=== PATIENT | female | born 1965 | race Caucasian/White ===

== ENCOUNTER 2019-05-21 18:37 | Inpatient (IN) | payer OTHER ==
[~2019-05-21] VITALS: Ht 167.6 cm; Wt 81.6 kg
[2019-05-21 18:51] VITALS: BP_SYST 134
--- NOTE | 2019-05-21 18:53 | NUR ---
Patient to ER bed 02 to gown for evaluation. Side rails up.
--- NOTE | 2019-05-21 19:00 | NUR ---
# 22 gauge angiocath placed to LT Hand. Use of asceptic technique. Opsite placed over site. Blood return noted. Blood for lab drawn from site. Flushed with 10 cc of normal saline. No evidence of infiltration noted. Patient tolerated well.
--- NOTE | 2019-05-21 19:05 | NUR ---
ER Dr. Pedro at bedside examining patient.
--- NOTE | 2019-05-21 19:10 | NUR ---
Pt C/O abdominal pain x 1.5 months. 4 days ago patient states pain started to radiate to the groin and new onset of nausea. Was seen at [facility] ER and was diagnosed with kidney stones to large to pass. Pt was medicated with Morphine and antibiotics, and discharged with Gervais for pain control. Pt states pain is unbearable and has not been relieved with Gervais. Denies any other symptoms at this time. Will continue to monitor.
[2019-05-21] MEDS ORDERED: ONDANSETRON HCL 4 MG/2 ML VIAL IVP ONE ×2 (19:15→20:45)
[2019-05-21] MEDS ORDERED: KETOROLAC TROMETHAMINE 30 MG VIAL IVP ONE (19:15)
[2019-05-21 19:19] LABS: BILIRUBIN,URINE NEGATIVE (NEGATIVE); BLOOD, URINE 3+ (NEGATIVE); CLARITY/URINE SL HAZY (CLEAR); COLOR,URINE YELLOW (YELLOW); GLUCOSE,URINE NEGATIVE (NEGATIVE); KETONES,URINE NEGATIVE (NEGATIVE); LEUKOCYTE ESTERASE ,URINE NEGATIVE (NEGATIVE); NITRITE, URINE POSITIVE (NEGATIVE); PROTEIN URINE TRACE (NEGATIVE)
[2019-05-21 19:30] LABS: BASOPHILS # (AUTO) 0.1 K/uL (0.0-0.2); BASOPHILS % (AUTO) 0.9 % (0.0-2.0); EOSINOPHILS # (AUTO) 0.3 K/uL (0.0-0.4); EOSINOPHILS % (AUTO) 4.8 % (0.0-4.0); HEMATOCRIT 38.2 % (36-48); HEMOGLOBIN 12.2 g/dL (12.0-16.0); LYMPHOCYTES # (AUTO) 1.9 K/uL (1.0-5.5); LYMPHOCYTES % (AUTO) 30.5 % (20.5-51.5); MEAN CORPUSCULAR HEMOGLOBIN 28 pg (27-31); MEAN CORPUSCULAR HGB CONC 32 % (32-36); MEAN CORPUSCULAR VOLUME 88 fL (79.0-98.0); MONOCYTES # (AUTO) 0.4 K/uL (0.0-1.0); MONOCYTES % (AUTO) 6.9 % (1.7-9.3); NEUTROPHILS # (AUTO) 3.5 K/uL (1.8-7.7); NEUTROPHILS % (AUTO) 56.9 % (40.0-70.0); PLATELET COUNT (AUTO) 213 K/uL (130-430); RED BLOOD CELL COUNT(AUTO) 4.36 MIL/uL (4.2-6.2); RED CELL DISTRIBUTION WIDTH 15.4 % (9.0-15.0); WHITE BLOOD COUNT (AUTO) 6.2 K/uL (4.8-10.8)
[2019-05-21 19:34] LABS: BACTERIA,URINE MODERATE /HPF (None Seen); MUCUS,URINE None Seen /LPF (None Seen); RBC,URINE 50-80 /HPF (0-3); WBC,URINE 0-3 /HPF (0-3)
[2019-05-21 19:42] LABS: CALCIUM 9.3 mg/dL (8.4-11.0); CREATININE 0.8 mg/dL (0.55-1.30)
[2019-05-21 19:46] LABS: ALBUMIN 3.5 g/dL (3.4-4.8); TOTAL BILIRUBIN 0.2 mg/dL (0.0-1.0)
--- NOTE | 2019-05-21 20:05 | NUR ---
Pt states pain is now a 9/10 after the Toradol administration. Pt requesting for addition medication for pain management.
[2019-05-21] MEDS ORDERED: MORPHINE 4 MG/ML INJ. SYRINGE IVP ONE (20:45)
[2019-05-21] MEDS ORDERED: NACL 0.9% 1,000 ML IV ONE (20:45)
--- NOTE | 2019-05-21 21:07 | NUR ---
medicated per md orders. patient tolerated well.
--- NOTE | 2019-05-21 21:13 | NUR ---
Patient transported to radiology via gurney, accompanied by rad staff.
--- NOTE | 2019-05-21 21:20 | NUR ---
Pt returned in stable condition
[2019-05-21] MEDS ORDERED: FER300L PO (22:31)
[2019-05-21] MEDS ORDERED: TOPI200T PO (22:31)
[2019-05-21] MEDS ORDERED: SUCR1TAB78 PO (22:31)
[2019-05-21] MEDS ORDERED: PANT20TA2 PO (22:31)
[2019-05-21] MEDS ORDERED: HYDR-4274 PO (22:31)
[2019-05-21] MEDS ORDERED: CYM30 PO (22:31)
--- NOTE | 2019-05-21 22:32 | NUR ---
Medication reconciliation completed with information gathered from patient
--- NOTE | 2019-05-21 22:56 | NUR ---
Patient will be admitted to care of Dr. Franco. Admitted to med surg unit. Will go to room 106B. Belongings list completed. Summary report printed. Report will be given at bedside.
--- NOTE | 2019-05-21 23:15 | NUR ---
pt.admit.via er-dept.pt.c/o pain;lt.flank;llq abdomen radiates to lower back.pt.had received the administration morphine;in the er-dept.pt.stated that the medication potency has waned.pt.presents pain,nausea.to page ;chi to apprise of the pt.'s status.
--- NOTE | 2019-05-21 23:24 | NUR ---
Report has been called to Jerald AYALA and will be transported to [facility] by ER staff. Pt stable, will continue to monitor
--- NOTE | 2019-05-21 23:27 | NUR ---
Admission Note Received patient from ER with diagnosis of abdominal pain. Initial Plan of Care discussed-patient verbalized understanding. Oriented to room, call light, pain management and safety.
[2019-05-21 23:31] VITALS: BP_SYST 121
[2019-05-22] VITALS: BP_SYST 121
--- NOTE | 2019-05-22 00:05 | NUR ---
PAGED PAGING JONATHON ALVAREZ FOR ORDERS, SPOKE WITH PAU
[2019-05-22] MEDS: MORPHINE 4 MG/ML INJ. SYRINGE IVP PRN ×5 (00:56→20:13)
[2019-05-22] MEDS: ONDANSETRON HCL 4 MG/2 ML VIAL IVP PRN ×3 (00:59→20:13)
[2019-05-22] MEDS: traZODone HCL 50 MG TABLET (DESYREL) PO PRN ×2 (01:00→23:50)
--- NOTE | 2019-05-22 01:00 | NUR ---
i have administered:morphine;4mg ivp;2/t pt's pain level.to f/u re;pain medication efficacy pr pain mgx protocol. i have administered zofran;4mg ivp;nausea.i have administered;trazodone;100mg po.i have initiated the iv fluids: d5/45ns.@100ml/hr.
[2019-05-22] MEDS: D5/0.45 NS 1,000 ML IV SCH ×3 (01:02→20:08)
--- NOTE | 2019-05-22 02:00 | NUR ---
pt.assessed.pt.presents quiescent affect;kendall;m,somnolent.iv fluids infusing.general status stable.respiratory status stable. pt.capable to reposition self.call light/telephone w/in the reach of the pt.
--- NOTE | 2019-05-22 03:58 | NUR ---
pt.assessed.present quiescent affect;calm,somnolent.iv fluids infusing.general status stable.respiratory status stable. pt.capable to reposition self.call light/telephone w/in the reach of the pt..
--- NOTE | 2019-05-22 06:38 | NUR ---
pt.assessed.pt.presents affect;restless.prt.assessed for cleanliness.pt.changed.pt.repositioned.i have assessed the dsg;lt.deltoid.drainage; sanguinous;scant.i have assessed the g-tube;intact;patent;g-tube feed infusing.i have assessed the chavis catheter intact;patent;urine content present.i have assessed the iv access;intact;patent:iv fluids infusing. general status stable.respiratory status stable.call light/telephone placed w/in the reach of the pt.:rt.side;hand.
--- NOTE | 2019-05-22 07:26 | NUR ---
OPENING NOTE Patient resting in the bed. No acute distress. AAO x 4. denied of pain at this time. Skin warm and dry to touch. IV intact to left hand, no redness, no swelling, no drainage. On D5 1/2NS at 100ml/hr, infusing well. Discussed the safety issue, use call light when needs help, and plan of care, verbally understanding. Safety measure maintained. Bed locked in low position, side rails up. Refused bed alarm, risk and benefit explained, verbally understanding. Call light within reached. Will continue to monitor.
[2019-05-22 07:50] VITALS: BP_SYST 113
[2019-05-22] MEDS ORDERED: HYDROcodone/ACETAMIN 5-325 MG TAB (NORCO/ VICODIN) PO PRN (09:00)
[2019-05-22] MEDS ORDERED: LORazepam 2 MG/ML VIAL IVP PRN (09:00)
[2019-05-22] MEDS ORDERED: FERROUS SULFATE 300 MG/5 ML UDC PO SCH (09:00)
[2019-05-22] MEDS ORDERED: ACETAMINOPHEN 325 MG TABLET PO PRN (09:00)
[2019-05-22] MEDS ORDERED: RIZATRIPTAN BENZOATE 10 MG PO ONE (09:00)
--- NOTE | 2019-05-22 09:14 | NUR ---
CONSULT ID UTI BRIDGET LINO [phone] FACE SHEET FAXED TO [phone] S/W DEJUAN GASTELUM
--- NOTE | 2019-05-22 09:15 | NUR ---
CONSULTATION PAGED REASON FOR CONSULTATION:UTI WAS CONSULT CALLED?Y PERSON WHO WAS NOTIFIED:DEJUAN CONSULTING PHYSICIAN:BRIDGET WOOD DIRECTOR OUTCOMES SPECIALTY:ID DIRECTOR OUTCOMES PHONE NUMBER:[phone] ORDERING PHYSICIAN:JONATHON LAWSON
[2019-05-22] MEDS: DULoxetine HCL 30 MG CAPSULE.DR (CYMBALTA) PO SCH (09:29)
[2019-05-22] MEDS: cefTRIAXone 1 GM in D5W 50 ML IV SCH (09:29)
[2019-05-22] MEDS: SUCRALFATE 1 GM TABLET PO SCH ×2 (09:30→20:09)
[2019-05-22] MEDS ORDERED: FERROUS SULFATE 325 MG TABLET.DR PO ONE (09:30)
[2019-05-22] MEDS: TOPIRAMATE 100 MG TABLET(Topamax) PO SCH ×2 (09:30→20:09)
[2019-05-22] MEDS: PANTOPRAZOLE SODIUM 40 MG TAB PO SCH ×2 (09:30→20:10)
--- NOTE | 2019-05-22 10:07 | NUR ---
MORPHINE GIVEN Patient c/o left abdomen and back pain. Morphine 4mg IVP given as ordered. No acute distress. Safety measure maintained. Call light within reached. Bed locked in low position, side rails up. Continue to monitor.
[2019-05-22] MEDS: HYDROcodone/ACETAMIN 10-325 MG TAB PO PRN (11:32)
--- NOTE | 2019-05-22 11:32 | NUR ---
NORCO GIVEN Patient c/o left abdomen and flank pain. Tabor 10/325mg PO given as ordered. No acute distress. Safety measure maintained. Call light within reached. Bed locked in low position, side rails up. Continue to monitor.
[2019-05-22 12:10] VITALS: BP_SYST 117
--- NOTE | 2019-05-22 13:15 | NUR ---
ROUND Patient resting in the bed. Family visited at bedside and talking to patient. No acute distress. Safety measure maintained. Call light within reached. Continue to monitor.
[2019-05-22] MEDS: FERROUS SULFATE 325 MG TABLET.DR PO SCH ×2 (14:29→20:09)
--- NOTE | 2019-05-22 14:30 | NUR ---
MORPHINE GIVEN Patient c/o left abdomen and back pain 08/03. Morphine 4mg IVP given as ordered. No acute distress. Safety measure maintained. Call light within reached. Bed locked in low position, side rails up. Continue to monitor.
--- NOTE | 2019-05-22 15:15 | NUR ---
Nutrition Assessment A - RD reviewed pertinent nutrition-related info via EMR (physician notes/nursing notes/labs/meds/nursing care trends/care activity). Pt seen resting in bed w/ cousin at bedside. Pt's lunch tray seen less than 25% eaten. Pt reported that she tries to eat a little bit here and there. Anthropometrics verified. Pt takes a protein shake mid-morning, MVI, and apple cider vinegar pill supplements at home. Pt requested ice cream and gelatin for PM/HS snack times. RD notified [facility] staff. Ht: 66"/5'6"; Wt: 180 lb/82 kg; IBW: 130 lb/59 kg; %IBW: 139%; Adj IBW (obesity): 143 lb/65 kg; BMI: 29.1 kg/m2 ESTIMATED NUTRITIONAL NEEDS CALORIES/DAY: 5194-9727 kcal/day (25-30 kcal/kg Adj IBW for maintenance) PROTEIN/DAY: 52-65 gm/day (0.8-1 gm/kg Adj IBW for maintenance) FLUID/DAY: 2.5-2.9 L/day (30-35 ml/kg CBW for maintenance) D - Inadequate nutritional intakes related to lack of appetite associated w/ pain as evidenced by pt report and Hx of N/V greater than 3 days [employer]. I - Recommend continuing regular diet M - Monitor appetite and PO intakes w/ goal of pt meeting at least 75% of estimated nutritional needs, labs trending WNL, normal GI function, and skin integrity/wt maintenance E - Moderate Risk; RD to F/U within 3-5 days
--- NOTE | 2019-05-22 15:23 | NUR ---
Nutrition Recommendation * Recommend continuing regular diet LP, RD Please refer to Nutrition Assessment for details.
[2019-05-22 16:00] VITALS: BP_SYST 114
--- NOTE | 2019-05-22 16:40 | NUR ---
RESTING Patient resting in the bed with eyes closed. No acute distress. IV intact, IVF infusing well. Safety measure maintained. Call light within reached. Bed locked in low position, side rails up. Continue to monitor.
--- NOTE | 2019-05-22 18:55 | NUR ---
CLOSING NOTE Patient resting in the bed. No acute distress. PRN pain med given as needed. Skin warm and dry to touch. IV intact to left hand, no redness, no swelling, no drainage. On D5 1/2NS at 100ml/hr, infusing well. All needs met and attended. Safety measure maintained. Bed locked in low position, side rails up. Refused bed alarm, risk and benefit explained, verbally understanding. Call light within reached. Will endorse to night nurse.
--- NOTE | 2019-05-22 19:40 | NUR ---
initial notes: pt is alert, awake, oriented x 4, complain of pain to her lower abdomen, not distress. stable vital sign. no wound. ivf infusing to left hand gauge 22- intact and patent. pt is ambulatory. explain to pt plan of care tonight. discuss about her medication. instructed to call and use call light. pt verbalized understanding. needs attended, call light in reach, side rails up. low bed position. will follow-up.
[2019-05-22 19:51] VITALS: BP_SYST 109
--- NOTE | 2019-05-22 22:00 | NUR ---
notes: awake, alert. no pain. stable. needs attended, call light in reach. will follow-up.
[2019-05-22 23:54] VITALS: BP_SYST 104
--- NOTE | 2019-05-23 00:23 | NUR ---
NOTES: pt is still awake, alert. no pain. stable. ask sleeping pills, explain medication side effects. pt verbalized understanding. pt refusing her scd, she is ambulatory. needs attended. call light in reach. will follow-up.
--- NOTE | 2019-05-23 06:14 | NUR ---
notes: pt call for pain medication, explain medication side effects. pt verbalized understanding. stable. needs attended. call light in reach. will follow-up.
[2019-05-23] MEDS: D5/0.45 NS 1,000 ML IV SCH ×2 (06:39→17:00)
[2019-05-23] MEDS: ONDANSETRON HCL 4 MG/2 ML VIAL IVP PRN ×3 (06:42→21:36)
[2019-05-23] MEDS: MORPHINE 4 MG/ML INJ. SYRINGE IVP PRN ×4 (06:44→21:33)
[2019-05-23 07:14] LABS: BASOPHILS % (AUTO) 0.8 % (0.0-2.0); EOSINOPHILS # (AUTO) 0.3 K/uL (0.0-0.4); EOSINOPHILS % (AUTO) 8.4 % (0.0-4.0); HEMATOCRIT 34.3 % (36-48); LYMPHOCYTES # (AUTO) 1.6 K/uL (1.0-5.5); LYMPHOCYTES % (AUTO) 43.2 % (20.5-51.5); MEAN CORPUSCULAR HEMOGLOBIN 28 pg (27-31); MEAN CORPUSCULAR HGB CONC 32 % (32-36); MEAN CORPUSCULAR VOLUME 88 fL (79.0-98.0); MONOCYTES # (AUTO) 0.3 K/uL (0.0-1.0); NEUTROPHILS # (AUTO) 1.4 K/uL (1.8-7.7); NEUTROPHILS % (AUTO) 38.6 % (40.0-70.0); PLATELET COUNT (AUTO) 182 K/uL (130-430); RED BLOOD CELL COUNT(AUTO) 3.88 MIL/uL (4.2-6.2); RED CELL DISTRIBUTION WIDTH 14.1 % (9.0-15.0); WHITE BLOOD COUNT (AUTO) 3.6 K/uL (4.8-10.8)
--- NOTE | 2019-05-23 07:20 | NUR ---
closing: pt is awake, alert. no pain at this time. no distress. stable. needs attended the whole shift. call light in reach. side rails up x 3 low bed position. bedside report to am rn.
--- NOTE | 2019-05-23 07:22 | NUR ---
OPENING NOTE Patient resting in the bed. No acute distress. AAO x 4. Denied of pain at this time. Skin warm and dry to touch. IV intact to left hand, no redness, no swelling, no drainage. On D5 1/2NS at 100ml/hr, infusing well. Discussed the safety issue, use call light when needs help, and plan of care, verbally understanding. Safety measure maintained. Bed locked in low position, side rails up. Refused bed alarm, risk and benefit explained, verbally understanding. Call light within reached. Will continue to monitor.
[2019-05-23 07:40] VITALS: BP_SYST 128
[2019-05-23 08:47] LABS: CALCIUM 8.9 mg/dL (8.4-11.0); CREATININE 0.73 mg/dL (0.55-1.30); POTASSIUM 3.6 mmol/L (3.5-5.1)
[2019-05-23] MEDS: PANTOPRAZOLE SODIUM 40 MG TAB PO SCH ×2 (09:28→20:25)
[2019-05-23] MEDS: TOPIRAMATE 100 MG TABLET(Topamax) PO SCH ×2 (09:28→20:25)
[2019-05-23] MEDS: DULoxetine HCL 30 MG CAPSULE.DR (CYMBALTA) PO SCH (09:28)
[2019-05-23] MEDS: SUCRALFATE 1 GM TABLET PO SCH ×2 (09:28→20:25)
[2019-05-23] MEDS: FERROUS SULFATE 325 MG TABLET.DR PO SCH ×3 (09:28→20:25)
[2019-05-23] MEDS: cefTRIAXone 1 GM in D5W 50 ML IV SCH (09:28)
--- NOTE | 2019-05-23 09:30 | NUR ---
SCHEDULE MED GIVEN Patient resting in the bed. No acute distress. IV intact, IVF infusing well. Safety measure maintained. Bed locked in low position, side rails up. Call light within reached. Continue to monitor.
[2019-05-23 11:46] VITALS: BP_SYST 109
--- NOTE | 2019-05-23 11:50 | NUR ---
MORPHINE GIVEN Patient c/o left abdomen pain 08/03. Morphine 4mg IVP given as ordered. No acute distress. Safety measure maintained. Call light within reached. Bed locked in low position, side rails up. Continue to monitor.
--- NOTE | 2019-05-23 13:20 | NUR ---
RESTING Patient resting in the bed comfortable. No acute distress. IV intact, IVF infusing well. Safety measure maintained. Bed locked in low position, side rails up. Continue to monitor.
--- NOTE | 2019-05-23 15:22 | NUR ---
FRIENDS VISITED Patient resting in the bed. No c/o pain at this time. Friends visited and talked to patient at bedside. Safety measure maintained. Call light within reached. Bed locked in low position, side rails up. Continue to monitor.
[2019-05-23 15:24] VITALS: BP_SYST 105
--- NOTE | 2019-05-23 18:46 | NUR ---
CLOSING NOTE Patient resting in the bed. No acute distress. PRN pain med given as needed. Skin warm and dry to touch. IV intact to left hand, no redness, no swelling, no drainage. On D5 1/2NS at 100ml/hr, infusing well. All needs met and attended. Safety measure maintained. Call light within reached. Bed locked in low position, side rails up. Refused bed alarm, risk and benefit explained, verbally understanding. Will endorse to night nurse.
--- NOTE | 2019-05-23 19:15 | NUR ---
initial notes: pt is alert, awake, oriented x 4, in bed watching tv. no pain not distress. stable vital sign. ivf infusing to left hand gauge 22- intact and patent, no sign of infiltration and swelling. explain to pt plan of care tonight. discuss about her medication. instructed to call and use call light and answer her question. pt verbalized understanding. needs attended, call light in reach, side rails up. low bed position. will follow-up.
[2019-05-23 20:17] VITALS: BP_SYST 122
--- NOTE | 2019-05-23 21:39 | NUR ---
dr. rachid hernández call- spoke to md. jaqui ramirez pt is requesting for stool softer and for bm. oer colace 100mg po bid and MOM daily po prn.
[2019-05-23] MEDS: MILK OF MAGNESIA 30 ML UDC PO PRN (22:07)
[2019-05-23] MEDS: traZODone HCL 50 MG TABLET (DESYREL) PO PRN (22:15)
--- NOTE | 2019-05-23 22:15 | NUR ---
notes: pt in bed. no pain. offer her MOM for bm. pt refused for now and she wants her sleeping pills, she wants to sleep tonight. she will take her MOM in am. educate pt about the medication side effects. pt verbalized understanding. needs attended. call light in reach. will follow-up
--- NOTE | 2019-05-24 | NUR ---
notes: sleeping, no pain. no distress . stable. call light in reach. will follow-up.
[2019-05-24 00:29] VITALS: BP_SYST 125
--- NOTE | 2019-05-24 02:19 | NUR ---
notes: sleeping comfortable on her side. stable. call light in reach. will follow-up.
--- NOTE | 2019-05-24 04:30 | NUR ---
notes: pt wakes up, go to bathroom, steady gait. back to bed. pt ask for pain medication. explain medication to pt. safety on. bed alarm on. kendall light in reach. needs attended. will follow-up.
[2019-05-24] MEDS: D5/0.45 NS 1,000 ML IV SCH ×3 (04:41→19:03)
[2019-05-24] MEDS: MORPHINE 4 MG/ML INJ. SYRINGE IVP PRN ×5 (04:42→22:39)
--- NOTE | 2019-05-24 05:26 | NUR ---
FOLLOWED UP FOLLOWED UP CONSULT FOR BRIDGET ARITA I SPOKE WITH TEJA GASTELUM CONSULT WAS CALLED ON 05/22/2019 @ [id number]
--- NOTE | 2019-05-24 05:27 | NUR ---
CONSULT CONSULT CALLED FOR DR. TORREY BAILEY I SPOKE WITH TEJA GASTELUM REASON FOR CONSULT: KIDNEY STONES REQUESTING CONSULT: DR. BARRY HOLT COLLECTION SPECIALIST PHONE NUMBER: [phone]
--- NOTE | 2019-05-24 05:57 | NUR ---
notes: pt is sleeping. comfortable. no distress. stable. call light in reach. will follow-up.
--- NOTE | 2019-05-24 07:15 | NUR ---
closing: pt is sleeping on her side. wakes up. no pain. no distress. stable. ivf infusing well. no infiltration. needs attended the whole shift. call light in reach. side rails up x 2 low bed position. bedside report given to am rn.
--- NOTE | 2019-05-24 07:27 | NUR ---
A/Ox4. On room air. IV on left hand, #22, D5 1/2 NS 100ml/hr, intact and patent. POC is in place, bed locked at the lowest position, call light with patient
[2019-05-24 08:00] VITALS: BP_SYST 133
--- NOTE | 2019-05-24 08:22 | NUR ---
PAGED PAGED LYNN BARRETT AT [phone] SPOKE WITH ALFONSO.
[2019-05-24] MEDS: SUCRALFATE 1 GM TABLET PO SCH ×2 (08:23→20:53)
[2019-05-24] MEDS: FERROUS SULFATE 325 MG TABLET.DR PO SCH ×3 (08:23→20:53)
[2019-05-24] MEDS: DOCUSATE SODIUM 100 MG CAPSULE PO SCH ×2 (08:23→20:53)
[2019-05-24] MEDS: PANTOPRAZOLE SODIUM 40 MG TAB PO SCH ×2 (08:23→20:53)
[2019-05-24] MEDS: MILK OF MAGNESIA 30 ML UDC PO PRN (08:23)
[2019-05-24] MEDS: TOPIRAMATE 100 MG TABLET(Topamax) PO SCH ×2 (08:23→20:53)
[2019-05-24] MEDS: DULoxetine HCL 30 MG CAPSULE.DR (CYMBALTA) PO SCH (08:23)
[2019-05-24] MEDS: ONDANSETRON HCL 4 MG/2 ML VIAL IVP PRN (08:24)
--- NOTE | 2019-05-24 10:00 | NUR ---
DR. HIRSCH IS PAGED IN REGARDS TO PATIENT'S CURRENT CONDITION.
[2019-05-24] MEDS: HYDROcodone/ACETAMIN 10-325 MG TAB PO PRN (11:00)
--- NOTE | 2019-05-24 11:30 | NUR ---
AMAURI MENDOZA, THE [facility] FOR DR. HIRSCH, RETURNS CALL. HE STATES HE WILL TRY TO FIND OUT IF DR. HIRSCH IS AVAILABLE.
[2019-05-24 12:00] VITALS: BP_SYST 125
--- NOTE | 2019-05-24 12:20 | NUR ---
DR. HIRSCH IS PAGED IN REGARDS TO PATIENT'S CURRENT CONDITION.
[2019-05-24] MEDS: PIPERACILLIN/TAZO 4.5GM/DEX-IS 100 ML IV SCH ×2 (13:47→22:13)
--- NOTE | 2019-05-24 14:15 | NUR ---
DR. HIRSCH IS PAGED. THE EXCHANGE STATES THAT DR. HIRSCH IS OUT OF THE OFFICE. REJI, THE PA-C, WILL BE PAGED.
--- NOTE | 2019-05-24 14:40 | NUR ---
PATIENT IS TALKING ON THE PHONE WITH FAMILY MEMBERS AT THIS TIME.
[2019-05-24] MEDS: MORPHINE 2 MG/ML INJ. SYRINGE IVP PRN ×2 (14:57→19:44)
[2019-05-24 16:00] VITALS: BP_SYST 130
--- NOTE | 2019-05-24 16:24 | NUR ---
AMAURI MENDOZA, IS CONTACTED, BUT HE STATES HE IS NOT ON THE CASE, AND HE WILL NOT BE INVOLVED WITH THE CARE OF THE PATIENT. DANIELLE, CHARGE NURSE, IS NOTIFIED. DR. REDDY IS PAGED.
--- NOTE | 2019-05-24 16:40 | NUR ---
DR. REDDY IS INFORMED THAT DR. HIRSCH'S GROUP WILL NOT PARTICIPATE IN THE CARE. HE ADVISED NURSE TO FIND ANOTHER UROLOGIST. CHARGE NURSE IS NOTIFIED.
--- NOTE | 2019-05-24 18:07 | NUR ---
CONSULT REASON FOR CONSULT: UTI PERSON I SPOKE WITH: SRI CONSULTING PHYSICIAN: DR. JOHNSON (DR. NG [employer]) PRODUCT SAFETY TESTER PHONE NUMBER: [phone] ORDERING PHYSICIAN: JONATHON ALVAREZ
--- NOTE | 2019-05-24 18:11 | NUR ---
UROLOGY CONSULT CONSULT MADE WITH DR PARIS JOHNSON. DR LAST WHO RETURNED THE CALL STATED THAT THEY DO NOT TAKE PATIENT'S INSURANCE. DR REDDY WAS NOTIFIED.
[2019-05-24 20:00] VITALS: BP_SYST 115
--- NOTE | 2019-05-24 20:00 | NUR ---
INITIAL NOTES: BEDSIDE REPORT DONE WITH AM JAMIE JAMESON. PATIENT IN BED AWAKE ORIENTED X4. FAMILY AT BEDSIDE.CLYDE ESCALATOR CONSTRUCTOR HERE TO PICKUP PATIENT FOR CT OF ABDOMEN /PELVIS.WENT PER WHEELCHAIR.VITAL SIGNS .ALL STABLE.IV SITE CLEAR.HAS TOLERABLE ABDOMINAL PAIN ON LEFT FLANK/LOWER BACK.AMBULATES TO BATHROOM TO VOID.CALL LIGHT WITHIN REACH. BED IN LOW POSITION. WILL MONITOR CLOSELY.
--- NOTE | 2019-05-24 20:55 | NUR ---
UROLOGY CONSULT: LYNN KIMBROUHG SEEN AND EXAMINE PATIENT ,DISCUSSED PLAN OF CARE,WITH ORDERS.
--- NOTE | 2019-05-24 21:05 | NUR ---
MEDS ADMIN: ALL DUE MEDS GIVEN WITHOUT DIFFICULTY. IVF INFUSING WELL. VOIDED IN THE BATHROOM WITH STEADY GAIT.
[2019-05-24 21:42] LABS: INR 0.9 (0.8-1.2); PROTHROMBIN TIME 9.4 SECS (9.5-12.5)
--- NOTE | 2019-05-24 22:15 | NUR ---
CONSENTS FOR SURGERY AND BLOOD TRANSFUSION SIGNED BY PATIENT AND WITNESSED.
--- NOTE | 2019-05-24 22:40 | NUR ---
PAIN: COMPLAIN OF LEFT ,FLANK,GROIN AND LOWER BACK ,LEVEL 9/10. MORPHINE 4MG IV GIVEN ORDERED.
--- NOTE | 2019-05-24 22:50 | NUR ---
AMBULATED TO BATHROOM TO VOID. DENIES DIFFICULTY.
[2019-05-24] MEDS: traZODone HCL 50 MG TABLET (DESYREL) PO PRN (23:28)
--- NOTE | 2019-05-24 23:35 | NUR ---
SLEEPING PILL GIVEN ORDERED. DOOZED OFF TO SLEEP .
[2019-05-25 00:46] VITALS: BP_SYST 103
--- NOTE | 2019-05-25 02:30 | NUR ---
SLEEPING THIS ROUNDS. BREATHING PATTERN REGULAR.
[2019-05-25] MEDS: PIPERACILLIN/TAZO 4.5GM/DEX-IS 100 ML IV SCH ×3 (05:37→21:23)
[2019-05-25] MEDS: MORPHINE 4 MG/ML INJ. SYRINGE IVP PRN ×4 (05:38→22:44)
[2019-05-25] MEDS: ONDANSETRON HCL 4 MG/2 ML VIAL IVP PRN ×2 (05:45→17:13)
[2019-05-25 06:33] LABS: BASOPHILS % (AUTO) 0.6 % (0.0-2.0); EOSINOPHILS # (AUTO) 0.4 K/uL (0.0-0.4); EOSINOPHILS % (AUTO) 8.7 % (0.0-4.0); HEMATOCRIT 35.4 % (36-48); HEMOGLOBIN 11.4 g/dL (12.0-16.0); LYMPHOCYTES # (AUTO) 1.2 K/uL (1.0-5.5); MEAN CORPUSCULAR HEMOGLOBIN 29 pg (27-31); MEAN CORPUSCULAR HGB CONC 32 % (32-36); MEAN CORPUSCULAR VOLUME 89 fL (79.0-98.0); MONOCYTES # (AUTO) 0.4 K/uL (0.0-1.0); MONOCYTES % (AUTO) 9.8 % (1.7-9.3); NEUTROPHILS # (AUTO) 2.4 K/uL (1.8-7.7); NEUTROPHILS % (AUTO) 53.9 % (40.0-70.0); PLATELET COUNT (AUTO) 190 K/uL (130-430); RED BLOOD CELL COUNT(AUTO) 3.98 MIL/uL (4.2-6.2); RED CELL DISTRIBUTION WIDTH 14.4 % (9.0-15.0); WHITE BLOOD COUNT (AUTO) 4.5 K/uL (4.8-10.8)
--- NOTE | 2019-05-25 06:35 | NUR ---
CLOSING: LABS WERE DRAWN.AMBULATED TO BATHROOM TO VOID WITH STEADY GAIT. COMPLAIN OF MILD HEADACHE FRONTAL AREA.HAS SEVERE ABDOMINAL PAIN. MORPHINE 4 MG IV GIVEN. NO ACUTE DISTRESS. KEPT NPO SINCE MIDNIGHT. PRE OP CHECKLIST COMPLETED. WILL ENDORSE CARE TO AM RN.
[2019-05-25 06:43] LABS: ANION GAP 8 (5-15); CALCIUM 9.1 mg/dL (8.4-11.0); CHLORIDE 111 mmol/L (98-107); CREATININE 0.81 mg/dL (0.55-1.30); GLUCOSE 116 mg/dL (70-99); POTASSIUM 4.1 mmol/L (3.5-5.1); SODIUM SERUM 146 mmol/L (136-145); UREA NITROGEN, BLOOD 13 mg/dL (8-21)
[2019-05-25] MEDS: D5/0.45 NS 1,000 ML IV SCH ×2 (07:00→18:16)
[2019-05-25 07:17] LABS: GFR AFRICAN AMERICAN 95 mL/min (>90)
--- NOTE | 2019-05-25 07:25 | NUR ---
Initial notes: Patient awake, alert and oriented. Stable. Remains NPO for surgery. I.V. access patent. Discussed plan of care. Call light within reach. Safety measures in placed. Report received at bedside.
[2019-05-25 08:00] VITALS: BP_SYST 121
--- NOTE | 2019-05-25 08:00 | NUR ---
Surgery: Patient went to OR for surgery.
[2019-05-25 08:28] LABS: ERYTHROCYTE SEDIMENTATION RATE 13 MM/HR (0-20)
[2019-05-25] MEDS ORDERED: IOHEXOL 0 ML IV ONE (08:43)
[2019-05-25] MEDS ORDERED: MIDAZOLAM HCL 5 MG/5 ML VIAL IVP ONE (08:45)
[2019-05-25] MEDS ORDERED: SEVOFLURANE 15 MIN GAS INH ONE (08:45)
[2019-05-25] MEDS ORDERED: WATER FOR IRRIGATION,STERILE 3,000 ML IRRIG.SOLN IR ONE (08:45)
[2019-05-25] MEDS ORDERED: PROPOFOL 200MG/ 20ML VIAL (DIPRIVAN) IV ONE (08:45)
[2019-05-25] MEDS ORDERED: fentaNYL CITRATE/PF 100 MCG/2 ML AMP IVP ONE (08:45)
[2019-05-25] MEDS ORDERED: fentaNYL CITRATE/PF 100 MCG/2 ML AMP IVP PRN (09:30)
[2019-05-25] MEDS ORDERED: KETOROLAC TROMETHAMINE 30 MG VIAL IVP PRN (09:30)
[2019-05-25] MEDS ORDERED: ONDANSETRON HCL 4 MG/2 ML VIAL IVP PRN (09:30)
[2019-05-25 09:38] LABS: C-REACTIVE PROTEIN QUANT < 0.2 mg/dL (0-0.5)
[2019-05-25] MEDS: fentaNYL CITRATE/PF 100 MCG/2 ML AMP IVP PRN ×2 (09:50→10:20)
[2019-05-25] MEDS ORDERED: fentaNYL CITRATE/PF 100 MCG/2 ML AMP ONE (10:00)
[2019-05-25 10:45] VITALS: BP_SYST 136
--- NOTE | 2019-05-25 10:58 | NUR ---
Back: Patient back in her room. Patient awake, alert and oriented. Stable. Ambulatory with assist. Went to the toilet and voided.
[2019-05-25] MEDS: PANTOPRAZOLE SODIUM 40 MG TAB PO SCH ×2 (11:12→20:42)
[2019-05-25] MEDS: SUCRALFATE 1 GM TABLET PO SCH ×2 (11:12→20:42)
--- NOTE | 2019-05-25 11:16 | NUR ---
IS: Patient did incentive spirometer at level 1500. Encouraged to use frequently.
--- NOTE | 2019-05-25 12:00 | NUR ---
rounds: patient ambulates to the toilet.
[2019-05-25] MEDS: HYDROcodone/ACETAMIN 10-325 MG TAB PO PRN ×3 (12:42→21:22)
[2019-05-25] MEDS: FERROUS SULFATE 325 MG TABLET.DR PO SCH ×3 (13:04→20:43)
[2019-05-25] MEDS: DULoxetine HCL 30 MG CAPSULE.DR (CYMBALTA) PO SCH (13:05)
[2019-05-25] MEDS: TOPIRAMATE 100 MG TABLET(Topamax) PO SCH ×2 (13:05→20:42)
[2019-05-25] MEDS: DOCUSATE SODIUM 100 MG CAPSULE PO SCH ×2 (13:05→20:43)
[2019-05-25] MEDS: MORPHINE 2 MG/ML INJ. SYRINGE IVP PRN (14:16)
--- NOTE | 2019-05-25 15:30 | NUR ---
Maxine rounds: Seen by Dr. Franco and talk to pt.
[2019-05-25 16:29] VITALS: BP_SYST 120
--- NOTE | 2019-05-25 16:39 | NUR ---
rounds: patient resting on bed. no distress noted.
[2019-05-25 17:14] VITALS: BP_SYST 120
--- NOTE | 2019-05-25 18:19 | NUR ---
Closing notes: Patient on bed resting. Stable. Needs attended. Call light within reach. Safety measures in placed. Report will be given to salesperson florist supplies.
--- NOTE | 2019-05-25 19:47 | NUR ---
Initial note: Received report from jacey RN. Patient is awake, no distress. Ambulatory with steady gait. No complaints of pain. Tolerating room air. Patient reaches 2100 ML on incentive spirometer. IV fluids infusing well to left hand IV site, no infiltration noted. Refused SCD's despite education. Call light with patient. Safety, fall precautions in place. Will continue with plan of care.
[2019-05-25 20:00] VITALS: BP_SYST 123
--- NOTE | 2019-05-25 22:52 | NUR ---
Pain: Patient complained of lower abdominal pain 08/03. Administered Morphine 4 MG as indicated via left hand IV site. Educated patient regarding indications, side effects, understanding verbalized. Call light with patient. Safety, fall precautions in place. Will continue monitoring.
[2019-05-25] MEDS: traZODone HCL 50 MG TABLET (DESYREL) PO PRN (23:33)
--- NOTE | 2019-05-25 23:45 | NUR ---
Rounds: Patient is awake, pain is at a tolerable level. IV fluids infusing well. Vitals WNL. Administered Desyrel 100 MG for sleep per patient request. Call light is with patient. Safety, fall precautions in place. Will continue monitoring.
[2019-05-26 00:44] VITALS: BP_SYST 125
--- NOTE | 2019-05-26 01:39 | NUR ---
Rounds: Patient is asleep, no distress. Tolerating room air, respirations are even and unlabored. IV site is patent and benign. Call light with patient. Will continue to monitor.
[2019-05-26] MEDS: D5/0.45 NS 1,000 ML IV SCH (04:52)
[2019-05-26] MEDS: MORPHINE 4 MG/ML INJ. SYRINGE IVP PRN ×2 (04:58→09:36)
[2019-05-26] MEDS: ONDANSETRON HCL 4 MG/2 ML VIAL IVP PRN (04:58)
--- NOTE | 2019-05-26 04:58 | NUR ---
Pain/nausea: Patient complained of severe lower abdominal pain and nausea. Administered PRN Morphine 4 MG and PRN Zofran 4 MG via left hand IV site. Educated patient regarding indications, side effects. Will continue monitoring.
[2019-05-26] MEDS: PIPERACILLIN/TAZO 4.5GM/DEX-IS 100 ML IV SCH (05:01)
[2019-05-26 05:53] LABS: BASOPHILS # (AUTO) 0.1 K/uL (0.0-0.2); EOSINOPHILS # (AUTO) 0.4 K/uL (0.0-0.4); EOSINOPHILS % (AUTO) 7.9 % (0.0-4.0); HEMOGLOBIN 11.9 g/dL (12.0-16.0); LYMPHOCYTES # (AUTO) 1.6 K/uL (1.0-5.5); LYMPHOCYTES % (AUTO) 30.4 % (20.5-51.5); MEAN CORPUSCULAR HEMOGLOBIN 29 pg (27-31); MEAN CORPUSCULAR HGB CONC 32 % (32-36); MEAN CORPUSCULAR VOLUME 89 fL (79.0-98.0); MONOCYTES # (AUTO) 0.4 K/uL (0.0-1.0); MONOCYTES % (AUTO) 7.6 % (1.7-9.3); NEUTROPHILS # (AUTO) 2.8 K/uL (1.8-7.7); NEUTROPHILS % (AUTO) 53.1 % (40.0-70.0); PLATELET COUNT (AUTO) 225 K/uL (130-430); RED BLOOD CELL COUNT(AUTO) 4.18 MIL/uL (4.2-6.2); RED CELL DISTRIBUTION WIDTH 13.7 % (9.0-15.0); WHITE BLOOD COUNT (AUTO) 5.3 K/uL (4.8-10.8)
--- NOTE | 2019-05-26 06:26 | NUR ---
Closing note: Patient is resting in bed, no distress noted. Even and unlabored breathing on room air. IV fluids infusing well to left hand. No complaints of pain. All needs met. Safety, fall precautions in place. Will endorse to dayshuseyin RN.
[2019-05-26 06:48] LABS: ANION GAP 4 (5-15); C-REACTIVE PROTEIN QUANT < 0.2 mg/dL (0-0.5); CALCIUM 9.1 mg/dL (8.4-11.0); CHLORIDE 111 mmol/L (98-107); CREATININE 0.72 mg/dL (0.55-1.30); GLUCOSE 105 mg/dL (70-99); POTASSIUM 3.5 mmol/L (3.5-5.1); SODIUM SERUM 140 mmol/L (136-145); UREA NITROGEN, BLOOD 9 mg/dL (8-21)
[2019-05-26 07:07] LABS: GFR AFRICAN AMERICAN 108 mL/min (>90)
--- NOTE | 2019-05-26 07:50 | NUR ---
opening note patient is resting in bed, A&Ox4, assessment completed, educated call worker person light system and plan of care, patient verbalized understanding, no signs of distress, patient denies any pain at this time, fall/safety precautions in place, patient stated that she does want to take prn milk of magnesia with her scheduled medications, IV fluids running with no signs of infiltration.
[2019-05-26 08:16] LABS: ERYTHROCYTE SEDIMENTATION RATE 16 MM/HR (0-20)
[2019-05-26 08:30] VITALS: BP_SYST 98
[2019-05-26] MEDS: SUCRALFATE 1 GM TABLET PO SCH (08:39)
[2019-05-26] MEDS: DOCUSATE SODIUM 100 MG CAPSULE PO SCH (08:39)
[2019-05-26] MEDS: TOPIRAMATE 100 MG TABLET(Topamax) PO SCH (08:39)
[2019-05-26] MEDS: FERROUS SULFATE 325 MG TABLET.DR PO SCH (08:39)
[2019-05-26] MEDS: DULoxetine HCL 30 MG CAPSULE.DR (CYMBALTA) PO SCH (08:39)
[2019-05-26] MEDS: MILK OF MAGNESIA 30 ML UDC PO PRN (08:40)
[2019-05-26] MEDS: PANTOPRAZOLE SODIUM 40 MG TAB PO SCH (08:40)
[2019-05-26] MEDS ORDERED: CIPR-211 PO (08:50)
--- NOTE | 2019-05-26 09:22 | NUR ---
PAGED PAGED LYNN BARRETT AT [phone] SPOKE WITH
[2019-05-26 09:27] VITALS: BP_SYST 98
--- NOTE | 2019-05-26 09:33 | NUR ---
pain medication patient resting in bed, complaining of groin and back pain, educated on med use and side effects, patient verbalized understanding, no other needs at this time, fall/safety precautions in place.
--- NOTE | 2019-05-26 11:15 | NUR ---
D/C Patient Patient given medication reconciliation form and D/C instructions. Exit Care provided. Patient verbalized understanding. MD discussed with patient the results and treatment provided. Ambulatory with steady gait for discharge to home. Patient in stable condition, ID band removed. IV catheter removed, intact and dressing applied, no active bleeding. Rx of [place] and ciprofloxacin given. Patient educated on pain management. All belongings sent with patient.
== END 2019-05-26 11:15 | disposition home or self-care (01) | DRG 661 ==
LOC: SED 18:37 → SMU 22:57
PROVIDERS: ADMIT Preventive Medicine Preventive Medicine/Occupational Environmental Medicine; ATTEND Preventive Medicine Preventive Medicine/Occupational Environmental Medicine
PROC: 0T778DZ Dilation of Left Ureter with Intraluminal Device, Via Natural or Artificial Opening Endoscopic (ICD-10-PCS; 2019-05-25)
PROC: 0TC78ZZ Extirpation of Matter from Left Ureter, Via Natural or Artificial Opening Endoscopic (ICD-10-PCS; principal; 2019-05-25 08:55)
DX: N20.2 Calculus of kidney with calculus of ureter (principal); G43.909 Migraine, unspecified, not intractable, without status migrainosus; R73.9 Hyperglycemia, unspecified; Z86.73 Personal history of transient ischemic attack (TIA), and cerebral infarction without residual deficits; Z87.11 Personal history of peptic ulcer disease; Z90.49 Acquired absence of other specified parts of digestive tract; Z90.710 Acquired absence of both cervix and uterus; Z79.899 Other long term (current) drug therapy
CPT/HCPCS: 36415; 71045; 74018; 76000; 80048; 80053; 81000-TC; 82360; 83690-TC; 84703; 85025; 85610-TC; 85651-TC; 85730-TC; 86140; 87081; 87086; 88300; 93005; 94760; 96374; 96375; 96376; 99285; C1758; C1769; C2625; J0696; J1885; J2250; J2270; J2405; J2543; J2704; J3010; J7060; Q9967